=== PATIENT | male | born 1980 | race African-American/Black ===

== ENCOUNTER 2021-06-23 00:22 | Emergency (ER) | payer SELFPAY ==
[~2021-06-23] VITALS: Ht 157.5 cm; Wt 75.0 kg
[2021-06-23] MEDS ORDERED: DIPHENHYDRAMINE 25MG CAPSULE PO ONE (01:30)
[2021-06-23] MEDS ORDERED: LORA10TA7 MT (02:46)
[2021-06-23] MEDS ORDERED: DIPH25CA83 MT (02:46)
[2021-06-23 02:54] VITALS: BP 131/79
== END 2021-06-23 02:54 | disposition home or self-care (01) ==
LOC: ER 00:22
DX: L50.9 Urticaria, unspecified (principal); Z90.49 Acquired absence of other specified parts of digestive tract
CPT/HCPCS: 99282; Q0163